=== PATIENT | female | born 1950 | race Caucasian/White ===

== ENCOUNTER 2016-04-27 14:40 | Inpatient (IN) | payer MEDICARE, OTHER ==
[2016-04-27] MEDS ORDERED: IOPAMIDOL 300 (61%) 150 ML VIAL IV ONE (14:41)
[2016-04-27 16:09] LABS: ABSOLUTE NEUTROPHIL COUNT 6.8 K/mm3 (1.8-7.7); BASO % 0.1 % (0.2-1.0); EOS # 0.1 (0.0-0.5); EOS % 0.9 % (0.9-2.9); HEMATOCRIT 28.2 % (37.0-47.0); HEMOGLOBIN 8.7 gm/l (12.0-16.0); IMM NEUT # 0.1 K/mm3 (0-0.2); IMM NEUT% 0.7 % (0-1); LYMPH # 1.3 (1.0-4.8); LYMPH % 14.1 % (15-45); MEAN CORPUSCULAR HEMOGLOBIN 25.3 pg (27.0-31.0); MEAN CORPUSCULAR HGB CONC 30.9 g/dl (33.0-37.0); MONO # 0.8 (0.0-0.8); MONO % 8.3 % (4-12); NEUT % 75.9 % (43-75); PLATELET COUNT 31 K/mm3 (130-400); RED CELL DISTRIBUTION WIDTH 24.1 % (11.5-14.5)
--- NOTE | 2016-04-27 16:13 | CT ---
HEAD W/O CON COMPARISON: None HISTORY: Elevated INR. Thrombocytopenia. On Coumadin. TECHNIQUE: Using a [employer] [address] scanner, images were obtained through the head. An automated dose reduction technique was used to minimize patient radiation dose. DOSE INFORMATION: CTDIvol (mGy): 51.70 DLP(mGycm): 887.30 FINDINGS: Mass: None Intracranial Hemorrhage: None Acute Infarction: None Cerebral hemispheres: Moderate volume loss. Low attenuation in the white matter. Basal ganglia: Normal Thalami: Normal Brainstem: Normal Cerebellum: Normal Ventricles: Normal Basilar cisterns: Normal Corpus callosum: Normal Pituitary fossa: Normal Middle ears and mastoid air cells: Normal Orbits and sinuses: Normal Skull and scalp: Normal Dural sinuses and vessels: Atherosclerosis of the internal carotid arteries. IMPRESSION: 1. No acute finding. 2. Moderate cerebral atrophy and chronic small vessel schema change of the white matter. Report was sent to the emergency department electronic medical record system 04/27/2016 at 16:14
[2016-04-27 16:36] LABS: PROTHROMBIN TIME 70.9 SECONDS (9.3-11.4)
[2016-04-27 16:41] LABS: INR 6.14
--- NOTE | 2016-04-27 16:46 | RAD ---
CHEST - 2 VIEWS COMPARISON: Chest 2 views, 04/23/2010 HISTORY: Shortness of breath, low oxygen saturation, and chills. FINDINGS: Views: Frontal and lateral chest Lungs: Normal Heart and vessels: Normal Trachea and bronchi: Normal Mediastinum and antwan: Normal Costophrenic sulci: Normal Chest wall and bones: No acute finding. Port-A-Cath on the right. Upper abdomen: Normal. IMPRESSION: Satisfactory position of right-sided Port-A-Cath. No acute finding.
[2016-04-27 16:59] LABS: ALB/GLOB RATIO 0.8 (>1.0); ALBUMIN 2.5 gm/dL (3.5-5.7); CALCIUM 8.5 mg/dL (8.6-10.3); MAGNESIUM 1.5 mg/dL (1.9-2.7)
[2016-04-27] MEDS ORDERED: BISACODYL 5 MG TABLET.EC PO PRN ×2 (17:06→19:51)
[2016-04-27] MEDS ORDERED: ACETAMINOPHEN 325 MG TABLET PO PRN ×2 (17:06→19:51)
[2016-04-27] MEDS ORDERED: BISACODYL 10 MG SUP PR PRN ×2 (17:06→19:51)
[2016-04-27] MEDS ORDERED: SODIUM CHLORIDE 0.9% 100 ML IV PRN ×2 (17:06→19:51)
[2016-04-27] MEDS ORDERED: BLISTEX LIPSTICK 1 EACH TP PRN ×2 (17:06→19:51)
[2016-04-27] MEDS ORDERED: MENTHOL/CETYLPYRD 1 EACH LOZENGE PO PRN ×2 (17:06→19:51)
[2016-04-27] MEDS ORDERED: MAGNESIUM HYDROXIDE 30 ML UDCUP PO PRN ×2 (17:06→19:51)
[2016-04-27 17:18] LABS: PH,URINE 6.5 (5.0-8.0); URINE BILIRUBIN NEGATIVE (NEGATIVE); URINE BLOOD 4+ (NEGATIVE); URINE GLUCOSE (UA) NEGATIVE (NEGATIVE); URINE LEUKOCYTE ESTERASE 2+ (NEGATIVE); URINE NITRITE NEGATIVE (NEGATIVE); URINE PROTEIN TRACE (NEGATIVE); URINE UROBILINOGEN NORMAL (0-1 mg/dl)
[2016-04-27 17:21] LABS: URINE APPEARANCE HAZY; URINE COLOR YELLOW
[2016-04-27 17:23] LABS: URINE EPITHELIAL CELLS FEW /hpf; URINE WBC 30-40 /hpf
[2016-04-27 17:24] LABS: URINE BACTERIA 1+
[2016-04-27] MEDS ORDERED: CHERRY SYRUP PO ONE ×2 (17:30)
[2016-04-27] MEDS ORDERED: PHYTONADIONE 5 MG PO ONE ×2 (17:30)
[2016-04-27] MEDS ORDERED: CEFTRIAXONE 1 GRAM DUPLEX 50 ML IV ONE (17:36)
[2016-04-27 17:42] LABS: BAND 1 % (0-10); BASOPHIL 0 % (0-1); EOSINOPHIL 0 % (1-3); LYMPHOCYTE 8 % (15-45); MONOCYTE 2 % (4-12); NEUTROPHILS 89 % (43-75); PLATELET ESTIMATE DECREASED (NORMAL); TOTAL CELLS COUNTED 100
--- NOTE | 2016-04-27 18:53 | CT ---
Exam: CT abdomen and pelvis with contrast COMPARISON: 02/21/2016 and 11/22/2015 INDICATION: Bilateral leg swelling, query venous congestion. History of uterine/endometrial cancer. TECHNIQUE: CT examination of the abdomen and pelvis was obtained following the administration 125 mL Isovue-300 intravenous contrast. FINDINGS: There are metastatic lymph nodes along the common and external iliac chains as well as at the confluence of the IVC which do produce minor mass effect on the right common iliac vein and confluence of the IVC. These veins remain patent. The IVC is also relatively narrowed at the level of the left renal vein compared to the prior exam but this appears to be in part related to difference in patient positioning. The IVC does remain patent. Unfortunately, there is evidence of progression endometrial cancer over the short interim. The peritoneal carcinomatosis has increased, particularly along the liver surface, and there are new intrahepatic liver lesions which measure up to 9 and 15 mm. Pelvic, retroperitoneal and mesenteric lymphadenopathy has increased as well, and there is increase in the metastatic disease at the level of the scar in the anterior abdominal wall and subcutaneous tissues. There has also been interval development of mild left-sided hydronephrosis and hydroureter, with the level of obstruction the pelvic mass in the hysterectomy bed. There are 2 small splenic lesions which have developed. There is a moderate amount of stool throughout the colon. There is no bowel obstruction, free air or free intraperitoneal fluid. The dominant mass within the hysterectomy bed is again noted to extend to the urinary bladder where there is focal urinary bladder wall thickening. Urinary bladder is otherwise unremarkable. Cholelithiasis. Gallbladder is otherwise unremarkable. Pancreas is within normal limits and stable. There is no adrenal mass. Atheromatous but nonaneurysmal abdominal aorta and iliac arteries. There are least 2 nodules within the right lung base along the hemidiaphragm which are not seen previously which raise concern for metastatic disease. Lung bases otherwise clear. No worrisome lytic or blastic osseous lesion is identified. IMPRESSION: 1. Progression of metastatic endometrial cancer since 02/21/2016. The dominant mass within the hysterectomy bed has increased and is now producing mild left-sided hydronephrosis and hydroureter. There is also an increase in peritoneal carcinomatosis, and there are new intrahepatic and intrasplenic lesions. In addition there are at least 2 nodules within the right lung base which are concerning for new metastatic disease. 2. The metastatic lymph nodes within the pelvis demonstrate minor mass effect on the right common iliac vein and SVC confluence, potentially producing some venous stasis within the legs. No DVT is identified in the veins remain patent. Report was uploaded to the EMR at 1849 hours 04/27/2016.
[2016-04-27 20:54] VITALS: BMI 62.8
[2016-04-27] MEDS ORDERED: DOCUSATE SODIUM 100 MG CAPSULE PO SCH (21:00)
[2016-04-27] MEDS ORDERED: FUROSEMIDE 20 MG TABLET PO PRN (22:30)
[2016-04-27] MEDS ORDERED: ALPRAZOLAM 1 MG TABLET PO PRN (22:30)
[2016-04-27] MEDS ORDERED: GABAPENTIN 300 MG CAPSULE PO SCH (22:30)
[2016-04-27] MEDS: TRAMADOL HCL 50 MG TABLET PO SCH (23:19)
[2016-04-27] MEDS: DIGOXIN 0.25 MG/ML AMP IV SCH (23:19)
[2016-04-27] MEDS: DOCUSATE SODIUM 100 MG CAPSULE PO SCH (23:35)
[2016-04-28] MEDS: DIGOXIN 0.25 MG/ML AMP IV SCH ×3 (04:30→17:23)
[2016-04-28] MEDS: TRAMADOL HCL 50 MG TABLET PO SCH ×4 (04:30→22:02)
[2016-04-28 07:51] LABS: ABSOLUTE NEUTROPHIL COUNT 6.3 K/mm3 (1.8-7.7); BASO % 0.1 % (0.2-1.0); EOS % 0.4 % (0.9-2.9); HEMATOCRIT 24.6 % (37.0-47.0); HEMOGLOBIN 7.7 gm/l (12.0-16.0); IMM NEUT # 0.1 K/mm3 (0-0.2); IMM NEUT% 0.6 % (0-1); LYMPH # 1.1 (1.0-4.8); LYMPH % 13.3 % (15-45); MEAN CORPUSCULAR HEMOGLOBIN 25.7 pg (27.0-31.0); MEAN CORPUSCULAR HGB CONC 31.3 g/dl (33.0-37.0); MONO # 0.8 (0.0-0.8); MONO % 9.6 % (4-12); PLATELET COUNT 28 K/mm3 (130-400); RED CELL DISTRIBUTION WIDTH 24.1 % (11.5-14.5)
[2016-04-28 07:54] LABS: ALB/GLOB RATIO 0.8 (>1.0); ALBUMIN 2.2 gm/dL (3.5-5.7); CALCIUM 7.9 mg/dL (8.6-10.3)
[2016-04-28 08:28] LABS: PLATELET ESTIMATE PLTS DECREASED (NORMAL)
[2016-04-28 08:29] LABS: ANISOCYTOSIS 2+; HYPOCHROMIA 1+
[2016-04-28] MEDS: ASCORBIC ACID 500 MG TABLET PO SCH (09:06)
[2016-04-28] MEDS: DOCUSATE SODIUM 100 MG CAPSULE PO SCH ×2 (09:06→20:00)
[2016-04-28] MEDS: FERROUS GLUCONATE (38 Fe) 324 MG TABLET PO SCH (09:06)
[2016-04-28] MEDS: ATORVASTATIN CALCIUM 40 MG TABLET PO SCH (09:06)
[2016-04-28] MEDS: GABAPENTIN 300 MG CAPSULE PO SCH ×4 (09:07→19:50)
[2016-04-28] MEDS ORDERED: Heparin Sodium Flush 500 unit/5 ml syringe ONE (09:12)
[2016-04-28] MEDS: Heparin Sodium Flush 500 unit/5 ml syringe IV PRN ×3 (09:40→18:53)
[2016-04-28 10:10] LABS: INR 2.18; PROTHROMBIN TIME 23.8 SECONDS (9.3-11.4)
--- NOTE | 2016-04-28 11:11 | HP ---
Breanna Gordon [id number] DATE OF ADMISSION: 04/27/2016 CHIEF COMPLAINT: Elevated INR. HISTORY OF PRESENT ILLNESS: The patient is a 66-year-old female with metastatic endometrial cancer who presented to the [facility] Emergency Department due to concerns about excessive anticoagulation. She had her chemotherapy cancelled today due to low platelets. She went to her anticoagulation clinic and found out her INR was still higher than expected despite being off of her Coumadin for the last month. It is unclear for what reasons, but the nurse at the Coumadin Clinic suggested she go to the emergency department. While in the emergency department, the focus seemed to be on her labs, however, she has had increased swelling in her lower extremities with increased redness as well as some progressive redness of the medial aspect of both lower legs and she noted the progressive redness up into the thighs today, but this was not addressed. While in the emergency department she did receive a dose of Rocephin, it is not clear what the rational for the Rocephin was at that time. She was told she was being treated for urinary tract infection. She has been undergoing treatment for her endometrial cancer and in the past week they have noticed an elevated protime and her Coumadin has been held, but despite holding the Coumadin she has had continued issues with protime elevation. She has had progressive swelling in her legs as well. REVIEW OF SYSTEMS: Negative for any fevers or chills. She has had no recent upper respiratory symptoms. She denies cough, dyspnea, wheezing, chest pain, or shortness of breath. She has had no orthopnea. She has had chronic lower extremity edema that has been a little worse than usual. She has had no nausea or vomiting. She has had some discomfort in her lower abdomen, which has been off and on for weeks. She has had no diarrhea or constipation. She denies any arthralgias. No headaches, fainting, blackouts, or seizures. She does complain of persistent urinary urgency and hesitancy despite treatment for a urinary tract infection on April 13. PAST MEDICAL HISTORY: Significant for endometrial cancer originally diagnosed in December 2014. She has had treatment through [facility] and then moved to [place] briefly to be with her son and then recently returned to [facility] for continuation of her treatment. She has been through multiple rounds of various chemotherapy agents. She is currently receiving gemcitabine once weekly for three weeks a month. Her chemotherapy was cancelled today due to low platelet levels. She had a follow up CT scan scheduled for April 29, but that was performed in the emergency department and shows evidence of poor response to the chemotherapy, progressive metastatic endometrial cancer seen compared to prior studies in February with new peritoneal carcinomatosis and intrahepatic and intrasplenic lesions, also two nodules within the right lung base are present concerning for metastatic disease and lymph nodes within the pelvis showing minor mass effect on the right common iliac vein and SVC confluence contributing to the venous stasis in her legs. No deep venous thrombosis was identified on the CT scan. Her chemotherapy currently is being managed by Cayla Salcedo. She has a history of chronic atrial fibrillation and chronic diastolic heart failure followed by Dr. Tejeda at [facility]. Last echocardiogram done in March 2014 showed a normal ejection fraction. She had adult onset diabetes complicated by diabetic neuropathy. She has had a history of hypertension in the past, but her blood pressure has been running low in the last year. She has a history of melanoma removed in 2001, history of hyperlipidemia and chronic venous insufficiency with venous stasis edema causing chronic lower extremity edema. PAST SURGICAL HISTORY: Significant for endometrial biopsy in December 2014. She had an exploratory laparotomy with omentectomy, appendectomy, left ureterolysis. bilateral salpingo-oophorectomy, and hysterectomy in February [address] Page. She had a tonsillectomy as a child. She had a left breast biopsy in 1998 which was benign, a right breast cystectomy at the age of 18 which was benign. She had a melanoma removed from the right upper back in 2001, the status of that is unknown. ALLERGIES: DOCUMENTED TO BUMEX WHICH CAUSED A RASH. CURRENT MEDICATIONS: 1. Vitamin C 500 mg daily. 2. Magnesium 250 mg daily. 3. Iron gluconate 324 mg daily. 4. Lipitor 40 mg daily. 5. Lasix 40 mg daily as needed for swelling. 6. Albuterol HFA inhaler 1 to 2 puffs every 4 hours as needed for wheezing. 7. Neurontin 600 mg at bedtime, 300 mg at 9:00 a.m. , noon, 4:00 p.m., and 8:00 p.m. 8. Xanax 0.5 mg twice daily as needed for anxiety. 9. Tramadol 50 mg every 6 hours as needed for pain. 10. Metformin 1000 mg every morning. 11. Warfarin 1.5 mg daily as her usual dose, but she has been off of medication for the past week. FAMILY HISTORY: Significant for a mother who of a stroke. Her father of pneumonia. SOCIAL HISTORY: She is and lives in the [place] area. She has one adopted son who lives in [place], [place] I believe. She is retired. She has about a 20 pack year history of smoking, quit in 2005. Denies drug use. Drinks wine occasionally. Her primary care provider is Dr. Germain Sinha. PHYSICAL EXAMINATION: VITAL SIGNS: Show a temperature of 97.7, pulse 121, blood pressure 86/48, respirations 20, oxygen saturation 98% on room air, body mass index is 62.9, weight is 161kg. GENERAL: This is an elderly female in no acute distress. HEENT: Unremarkable. NECK: Supple without lymphadenopathy or jugular venous distention. LUNGS: Breath sounds are diminished in the bases with some crackles. CARDIOVASCULAR: Reveals and irregular tachycardia. ABDOMEN: Reveals some fullness in the lower abdominal area. No tenderness or guarding. Positive bowel sounds. PELVIC: Deferred. RECTAL: Deferred. EXTREMITIES: Show 3+ pitting edema in the lower leg extending up into the posterior thighs and into the buttock. She has diffuse erythema of her lower legs including the feet with some redness involving the medial aspect of both legs extending toward the groin region. There is ulcerated vesicle in the right lower leg measuring about 5 x 5 cm with serous drainage and there is scaling of the skin over the feet. No other open wounds are present. Pulses are 1+ at the dorsalis pedis arteries bilaterally. NEUROLOGIC: Patient alert and oriented x3. LABORATORY STUDIES: CBC shows a white count of 9, hemoglobin of 8.7, platelet count of 31,000. Differential shows 89% neutrophils, 1% bands, 8% lymphocytes. INR is elevated at 6.14. Chemistry profile shows a sodium of 133, potassium 3.7, carbon dioxide 29, creatinine 0.6, glucose 125, magnesium 1.5. Total bilirubin 0.8, AST 43, ALT 35. Troponin I is 0.02. B-type natiuretic peptide is 340. Albumin is 2.5, lipase is 5. Urine shows 4+ blood, 2+ leukocyte esterase, 6-10 red cells, 30-40 white cells, 1+ bacteria. DIAGNOSTICS: CT of the abdomen and pelvis shows evidence of metastatic disease as mentioned above. Chest x-ray shows normal heart, lungs, and vessels. She has a port-a-cath in place. CT of the brain without contrast shows no acute findings with moderate cerebral atrophy and chronic small vessel ischemic change. ASSESSMENT AND PLAN: The patient's venous stasis edema with secondary to cellulitis involving both lower extremities. She has metastatic endometrial cancer. She is immunocompromised due to her chemotherapy. She has thrombocytopenia due to gemcitabine. She has an elevated INR associated with her Coumadin and her liver metastasis which has been refractory to vitamin K so far. She has chronic atrial fibrillation with tachycardia. She has chronic diastolic heart failure. She has hypotension. She has diabetes. She is admitted to the med/surg unit. She has no POLST form. Prognosis is poor. She will be treated with Rocephin. I cultured the drainage from the right lower leg wound. Will consult with oncology to determine if the patient would be a candidate for hospice or if further palliative treatment would be an option. Due to her hypotension, diuresis is contraindicated, but given her severe edema I am reluctant to give her fluids at this time. She is asymptomatic and has normal renal function. I am not going to treat her tachycardia or her hypotension, however, I would consider putting the patient on digitalis for rate control as this is blood pressure neutral. For her diabetes she is going to continue her usual medicines along with sliding scale NovoLog. She has chronic diastolic heart failure which appears to be stable. I am going to review the patient's advanced directive and create a POLST form hopefully before she discharges, but she is reluctant to discuss this at this time and would like to think about things. Venous thromboembolism is moderate and she is excessively anticoagulated at this point. She received a dose of vitamin K. We will get a daily INR. We will likely pursue some type of compressive dressing for her lower extremities. JOB: [id number] CC: Dr. Cayla Sinha
[2016-04-28 12:09] LABS: CALCIUM 7.8 mg/dL (8.6-10.3)
--- NOTE | 2016-04-28 12:12 | PDOC43 ---
- Subjective Chief Complaint: Leg swelling, elevated INR Patient reports feeling ok. Leg puffiness is a bit better. Breathing ok. No abdominal c/o. No c/o. Does have ongoing neuropathy involving feet since 1998. - Objective Vital Signs Temperature 98.0 F 04/28/16 07:00 Pulse Rate 110 04/28/16 07:00 Respiratory Rate 20 04/28/16 08:00 Blood Pressure 100/52 04/28/16 07:00 O2 Saturation by Pulse Oximetry 94 04/28/16 07:00 Oxygen Delivery Method Room Air Oxygen Flow Rate 0 Vital Signs Last 12 Hours Temp Pulse Resp BP Pulse Ox 04/28/16 08:00 20 04/28/16 07:00 98.0 F 110 18 100/52 94 04/28/16 01:06 20 Intake and Output 04/26/16 04/27/16 04/28/16 23:59 23:59 23:59 Intake Total 360 Output Total 250 Balance 110 General: Alert, Cooperative, Other (wearing hat to cover head), No Acute Distress Lungs: Clear to Auscultation Bilaterally (posterior with good air movement, anteriorly is difficult to hear.) Cardiovascular: Other (mostly regular, rate controlled.) Abdomen: Soft, Normal Bowel Sounds, No Tenderness Extremities: Edema (of feet noted, including soles of feet, but appearing improved with wrinkling noted on sides of fet.) Skin: Normal Color, Other (legs/feet with dusky erythema, not appearing cellulitic.) Neurological: Normal Speech Psych/Mental Status: Normal Affect (very sweet.) Laboratory 04/28/16 05:10 04/28/16 05:10 04/28/16 04/28/16 09:40 05:10 RBC 3.00 L MCH 25.7 L MCHC 31.3 L RDW 24.1 H PT 23.8 H Estimated GFR 99 H Calcium 7.9 L AST 53 H Alkaline Phosphatase 136 H Total Protein 4.9 L Albumin 2.2 L Albumin/Globulin Ratio 0.8 L Laboratory Tests 04/27/16 04/28/16 15:46 09:40 INR 6.14 H* 2.18 Current Medications: Current meds reviewed in EMR. Active Medications Acetaminophen (Tylenol) 650 mg PO Q6H PRN PRN Reason: Pain or Temperature > 100.5 F Alprazolam (Xanax) 0.5 mg PO BID PRN PRN Reason: Anxiety Ascorbic Acid (Vitamin C) 500 mg PO DAILY [facility] Last Admin: 04/28/16 09:06 Dose: 500 mg Atorvastatin Calcium (Lipitor) 40 mg PO DAILY [facility] Last Admin: 04/28/16 09:06 Dose: 40 mg Benzocaine/Menthol (Cepacol) 1 each PO PRN PRN PRN Reason: Sore Throat Bisacodyl (Dulcolax) 10 mg MO DAILY PRN PRN Reason: Constipation Bisacodyl (Dulcolax) 5 mg PO DAILY PRN PRN Reason: Constipation Digoxin (Lanoxin) 0.25 mg IV Q6H [facility] Stop: 04/28/16 16:31 Last Admin: 04/28/16 09:41 Dose: 0.25 mg Digoxin (Lanoxin) 0.25 mg PO DAILY@1700 [facility] Docusate Sodium (Colace) 100 mg PO BID [facility] Last Admin: 04/28/16 09:06 Dose: 100 mg Ferrous Gluconate (Fergon) 324 mg PO DAILY [facility] Last Admin: 04/28/16 09:06 Dose: 324 mg Furosemide (Lasix) 40 mg PO QAM [facility] Gabapentin (Neurontin) 300 mg PO 0900,1200,1600,2000 [facility] Last Admin: 04/28/16 09:07 Dose: 300 mg Gabapentin (Neurontin) 600 mg PO Q24H [facility] Heparin Sodium (Beef Lung) (Heparin Sodium 500 Unit/5 Ml) 500 units IV PRN PRN PRN Reason: per [facility] protocol Last Admin: 04/28/16 11:34 Dose: 500 units Sodium Chloride (Sodium Chloride 0.9%) 100 mls @ 25 mls/hr IV PRN PRN PRN Reason: Flush Ceftriaxone Sodium/Dextrose 1 (g/ Premix (D5W) 50 ml) 50 mls @ 100 mls/hr IV Q24H [facility] Magnesium Hydroxide (Milk Of Magnesia) 30 ml PO DAILY PRN PRN Reason: Constipation Petrolatum/Paraffin/Mineral Oil (Blistex) 1 each TP PRN PRN PRN Reason: Dry and/or chapped lips Sodium Chloride (Normal Saline 10ml Flush) 10 - 50 ml IV PRN PRN PRN Reason: IV Flush Last Admin: 04/28/16 11:30 Dose: 30 ml Sodium Chloride (Normal Saline 10ml Flush) 10 ml IV Q8HR [facility] Last Admin: 04/28/16 09:07 Dose: 10 ml Tramadol HCl (Ultram) 50 mg PO Q6H [facility] Last Admin: 04/28/16 09:41 Dose: 50 mg - Problems: Assessment/Plan (1) Edema Qualifiers: Edema type: unspecified Qualifier Code: (R60.9) Edema, unspecified Status: AcuteAssessment/Plan: several factors may be playing a role. Pt with metastatic endometrial cancer, low albumin, sl elevated BNP. Improved with diuresis, and plan supplementation of protein, elevation of legs, compression. (2) Endometrial cancer Status: AcuteAssessment/Plan: With progressing peritoneal carcinomatosis; seeing Dr Salcedo, recent chemotherapy (Apr 2016). CT also shows some mild degree hydronephrosis/hydroureter, and poss lung mets. , Will review with Dr Salcedo about further tx/concerns. (3) Anemia Status: AcuteAssessment/Plan: Suspect due to chemotherapy, but also consider chronic illness; Thrombocytopenia noted as well. Pt renal status ok, iron studies (last month) seem ok. (4) Thrombocytopenia Status: AcuteAssessment/Plan: Pt's platelets had been normal or even high until earlier this month. Did have chemo this month, about 2-3 weeks ago (5) Atrial fibrillation Qualifiers: Atrial fibrillation type: chronic Qualifier Code: (I48.2) Chronic atrial fibrillation Status: ChronicAssessment/Plan: On coumadin. Had marked elevated INR; now to goal. Rate controlled, on digoxin. Will wish to discuss with Dr Salcedo about whether to continue with anticoagulation, kizzy in setting of thrombocytopenia. (6) Peripheral neuropathy Qualifiers: Peripheral neuropathy type: polyneuropathy, unspecified Qualifier Code : (G62.9) Polyneuropathy, unspecified Status: ChronicAssessment/Plan: Chronic, continue meds. VTE Prophylaxis: Mechanical only, but INR is still in goal range (2s) today.
[2016-04-28] MEDS ORDERED: CEFTRIAXONE 1 GRAM DUPLEX 1 G in Premix (D5W) 50 ml 1 EACH IV SCH (17:00)
[2016-04-28] MEDS ORDERED: PUMP TUBING ONE (17:11)
[2016-04-28] MEDS ORDERED: GABAPENTIN 600 MG TABLET PO SCH (22:30)
[2016-04-29] MEDS: TRAMADOL HCL 50 MG TABLET PO SCH ×3 (04:06→16:14)
[2016-04-29] MEDS: Heparin Sodium Flush 500 unit/5 ml syringe IV PRN ×2 (04:45→16:33)
[2016-04-29 05:32] LABS: INR 1.34; PROTHROMBIN TIME 14.3 SECONDS (9.3-11.4)
[2016-04-29 05:33] LABS: ALB/GLOB RATIO 0.8 (>1.0); ALBUMIN 2.2 gm/dL (3.5-5.7); CALCIUM 7.9 mg/dL (8.6-10.3)
[2016-04-29 06:11] LABS: ABSOLUTE NEUTROPHIL COUNT 6.2 K/mm3 (1.8-7.7); BASO % 0.1 % (0.2-1.0); EOS # 0.1 (0.0-0.5); EOS % 0.7 % (0.9-2.9); HEMOGLOBIN 7.9 gm/l (12.0-16.0); IMM NEUT # 0.1 K/mm3 (0-0.2); IMM NEUT% 0.7 % (0-1); LYMPH # 1.3 (1.0-4.8); LYMPH % 15.5 % (15-45); MEAN CELL VOLUME 83.9 fl (81.0-99.0); MEAN CORPUSCULAR HEMOGLOBIN 25.5 pg (27.0-31.0); MEAN CORPUSCULAR HGB CONC 30.4 g/dl (33.0-37.0); MONO # 0.9 (0.0-0.8); PLATELET COUNT 34 K/mm3 (130-400); RED CELL DISTRIBUTION WIDTH 24.4 % (11.5-14.5)
[2016-04-29 07:11] LABS: PLATELET ESTIMATE DECREASED (NORMAL)
[2016-04-29 07:12] LABS: ANISOCYTOSIS 2+
[2016-04-29] MEDS ORDERED: FUROSEMIDE 40 MG TABLET PO SCH (09:00)
[2016-04-29] MEDS: DOCUSATE SODIUM 100 MG CAPSULE PO SCH (09:30)
[2016-04-29] MEDS: FERROUS GLUCONATE (38 Fe) 324 MG TABLET PO SCH (09:30)
[2016-04-29] MEDS: ASCORBIC ACID 500 MG TABLET PO SCH (09:31)
[2016-04-29] MEDS: ATORVASTATIN CALCIUM 40 MG TABLET PO SCH (09:31)
[2016-04-29] MEDS: GABAPENTIN 300 MG CAPSULE PO SCH ×3 (09:31→16:14)
--- NOTE | 2016-04-29 10:38 | PDOC43 ---
- Subjective Chief Complaint: Leg swelling, elevated INR Patient reports feeling ok, eager to go home. Got legs wrapped up, doing ok. Doesn't wish to start hospice at this time. Reports good help at home. No new c/ o. - Objective Vital Signs Temperature 98.3 F 04/29/16 07:37 Pulse Rate 90 04/29/16 07:37 Respiratory Rate 16 04/29/16 07:37 Blood Pressure 94/41 04/29/16 07:37 O2 Saturation by Pulse Oximetry 92 04/29/16 07:37 Oxygen Delivery Method Room Air Oxygen Flow Rate 0 Vital Signs Last 12 Hours Temp Pulse Resp BP Pulse Ox 04/29/16 07:37 98.3 F 90 16 94/41 92 04/29/16 03:05 97.7 F 85 20 103/51 93 04/29/16 01:58 20 04/28/16 23:35 98.0 F 83 22 119/66 95 Intake and Output 04/27/16 04/28/16 04/29/16 23:59 23:59 23:59 Intake Total 1214 750 Output Total 1150 500 Balance 64 250 General: Alert, Cooperative, No Acute Distress Lungs: Clear to Auscultation Bilaterally, Normal Air Movement Cardiovascular: Regular Rate and Rhythm Abdomen: Soft, Normal Bowel Sounds, Other (sl full abdomen) Extremities: Edema (with venous stasis changes, discoloration.) Neurological: Normal Speech Psych/Mental Status: Normal Affect, Normal Mood, Other (very pleasant) Laboratory 04/29/16 04:35 04/29/16 04:35 04/29/16 04/28/16 04/28/16 04:35 11:00 09:40 RBC 3.10 L MCH 25.5 L MCHC 30.4 L RDW 24.4 H PT 14.3 H 23.8 H Calcium 7.9 L 7.8 L Alkaline Phosphatase 124 H Total Protein 5.0 L Albumin 2.2 L Albumin/Globulin Ratio 0.8 L Current Medications: Current meds reviewed in EMR. Active Medications Acetaminophen (Tylenol) 650 mg PO Q6H PRN PRN Reason: Pain or Temperature > 100.5 F Alprazolam (Xanax) 0.5 mg PO BID PRN PRN Reason: Anxiety Ascorbic Acid (Vitamin C) 500 mg PO DAILY [facility] Last Admin: 04/29/16 09:31 Dose: 500 mg Atorvastatin Calcium (Lipitor) 40 mg PO DAILY [facility] Last Admin: 04/29/16 09:31 Dose: 40 mg Benzocaine/Menthol (Cepacol) 1 each PO PRN PRN PRN Reason: Sore Throat Bisacodyl (Dulcolax) 10 mg [place] DAILY PRN PRN Reason: Constipation Bisacodyl (Dulcolax) 5 mg PO DAILY PRN PRN Reason: Constipation Digoxin (Lanoxin) 0.25 mg PO DAILY@1700 [facility] Docusate Sodium (Colace) 100 mg PO BID [facility] Last Admin: 04/29/16 09:30 Dose: 100 mg Ferrous Gluconate (Fergon) 324 mg PO DAILY [facility] Last Admin: 04/29/16 09:30 Dose: 324 mg Furosemide (Lasix) 40 mg PO QAM [facility] Last Admin: 04/29/16 09:30 Dose: 40 mg Gabapentin (Neurontin) 300 mg PO 0900,1200,1600,2000 [facility] Last Admin: 04/29/16 09:31 Dose: 300 mg Gabapentin (Neurontin) 600 mg PO Q24H [facility] Last Admin: 04/28/16 22:02 Dose: 600 mg Heparin Sodium (Beef Lung) (Heparin Sodium 500 Unit/5 Ml) 500 units IV PRN PRN PRN Reason: per [facility] protocol Last Admin: 04/29/16 04:45 Dose: 500 units Sodium Chloride (Sodium Chloride 0.9%) 100 mls @ 25 mls/hr IV PRN PRN PRN Reason: Flush Ceftriaxone Sodium/Dextrose 1 (g/ Premix (D5W) 50 ml) 50 mls @ 100 mls/hr IV Q24H [facility] Last Admin: 04/28/16 18:06 Dose: 100 mls/hr Magnesium Hydroxide (Milk Of Magnesia) 30 ml PO DAILY PRN PRN Reason: Constipation Petrolatum/Paraffin/Mineral Oil (Blistex) 1 each TP PRN PRN PRN Reason: Dry and/or chapped lips Sodium Chloride (Normal Saline 10ml Flush) 10 - 50 ml IV PRN PRN PRN Reason: IV Flush Last Admin: 04/28/16 18:53 Dose: 10 ml Sodium Chloride (Normal Saline 10ml Flush) 10 ml IV Q8HR [facility] Last Admin: 04/29/16 09:31 Dose: Not Given Tramadol HCl (Ultram) 50 mg PO Q6H [facility] Last Admin: 04/29/16 09:31 Dose: 50 mg - Problems: Assessment/Plan (1) Edema Qualifiers: Edema type: unspecified Qualifier Code: (R60.9) Edema, unspecified Status: AcuteAssessment/Plan: several factors may be playing a role. Pt with metastatic endometrial cancer, low albumin, sl elevated BNP; Dr Salcedo reports chemo (gemcitabine) can cause edema as well. Improved with diuresis, and plan supplementation of protein, elevation of legs, compression. (2) Endometrial cancer Status: AcuteAssessment/Plan: With progressing peritoneal carcinomatosis; seeing Dr Salcedo, recent chemotherapy (Apr 2016). CT also shows some mild degree hydronephrosis/hydroureter, and poss lung mets. Reviewed with Dr Salcedo about further tx/concerns, she would consider for hospice Reviewed with patient, she would like to wait to speak with Dr Salcedo rather than start hospice now. (3) Anemia Status: AcuteAssessment/Plan: Suspect due to chemotherapy, but also consider chronic illness; Thrombocytopenia noted as well. Pt renal status ok, iron studies (last month) seem ok. Plan recheck CBC via home health (4) Thrombocytopenia Status: AcuteAssessment/Plan: Pt's platelets had been normal or even high until earlier this month. Did have chemo this month, about 2-3 weeks ago (5) Atrial fibrillation Qualifiers: Atrial fibrillation type: chronic Qualifier Code: (I48.2) Chronic atrial fibrillation Status: ChronicAssessment/Plan: On coumadin. Had marked elevated INR; now to goal. Rate controlled, on digoxin. Spoke with Dr Salcedo about whether to continue with anticoagulation, kizzy in setting of thrombocytopenia; she reports wait until plt > 50K. (6) Peripheral neuropathy Qualifiers: Peripheral neuropathy type: polyneuropathy, unspecified Qualifier Code : (G62.9) Polyneuropathy, unspecified Status: ChronicAssessment/Plan: Chronic, continue meds. VTE Prophylaxis: Mechanical only, but INR now below 2 today. Disposition: anticipate DC to home with HH to check on PT/OT needs. Follow up with Dr Salcedo; discussed consideration of hospice, pt declines at this time.
[2016-04-29 11:46] VITALS: BP 104/49
[2016-04-29] MEDS ORDERED: DIGOXIN 0.25 MG TABLET PO SCH (17:00)
--- NOTE | 2016-04-29 17:12 | DS ---
LES MOSHER [id number] DATE OF ADMISSION: 04/27/2016 DISCHARGE DIAGNOSES: 1. Known metastatic endometrial carcinoma. 2. Venous stasis edema bilaterally, with associated cellulitis. 3. Potential immunocompromise due to chemotherapy. 4. Thrombocytopenia and anemia due to gemcitabine. 5. Elevated INR associated with Coumadin taken for atrial fibrillation, now off Coumadin. 6. Chronic diastolic heart failure. 7. Diabetes. 8. History of atrial fibrillation, with rate control. 9. Peripheral neuropathy. 10. Remote history of melanoma. REASON FOR ADMISSION: The patient is a 66-year-old female with known metastatic endometrial cancer who presented to [facility] regarding excessive anticoagulation and edema. She had been scheduled for chemotherapy, but this was cancelled due to low platelets, and after anticoagulants in clinic her INR was higher than expected despite being off the Coumadin. She was referred to the emergency department. In the emergency department she had complained of increased swelling to the lower extremities with some redness and was given Rocephin and referred to the Hospitalist Service. HOSPITAL COURSE: The patient's admission labs showed a white count of 9.0, hemoglobin 8.7, MCV of 82.0 and platelets 31,000. INR is 6.14. Chemistry profile showed a sodium of 133, potassium 3.7, BUN of 13, creatinine 0.6, glucose 125, calcium 8.5, magnesium 1.5, AST of 43, ALT of 35 and alkaline phosphatase 132. CK of 22. Troponin 0.02. BNP of 340. Lipase 5 and albumin 2.5. Urinalysis showed 2+ leukocyte esterase, 6-10 red cells and 30-40 white cells. Her urine culture showed no growth however. She had some weeping from the right leg, which was cultured and showed light growth and normal skin cesar. The patient received continued ceftriaxone and Lasix. Her Coumadin was held and she received a dose of vitamin K. Her INR went from 6.14 to 2.18 to 1.34 by 04/29/2016. Her white count remained stable at 8.5 by 04/29/2016 and her hemoglobin drifted slightly to 7.9 by 04/29/2016. Platelet count remained low at 34,000. Chemistry profile showed modest improvement in sodium to 137. Renal function remained stable. Glucose 105. Mild elevation of alkaline phosphatase. Albumin remained low at 2.2. The patient underwent an abdomen and pelvis CT, which showed progression of metastatic endometrial cancer since 02/21/2016, dominant mass within the hysterectomy bed has increased and now producing mild left-sided hydronephrosis and hydroureter. There is also an increase in peritoneal carcinomatosis and new intrahepatic and new intrahepatic and intrasplenic lesions. In addition, there are at least two nodules within the right lung base that are concerning for new metastatic disease. The metastatic lymph nodes within the pelvis demonstrate minor mass effect on the right common iliac vein, potentially producing some venous stasis within the legs. No DVT is identified. A brain CT was done, showing moderate cerebral atrophy and chronic small vessel ischemic change of the white matter. A chest x-ray showed satisfactory position of right-sided Port-A-Cath. No acute findings. The patient's vital signs remained stable. She was afebrile the entire time and pressures remained slightly low. She was treated with Lasix and her legs were kept elevated, and she had good response with reduction in skin tension in legs and reduction in the erythema felt to be associated with cellulitis. On a phone call with Dr. Salcedo, her course was discussed. Dr. Salcedo felt that the gemcitabine was a likely candidate for the hematologic abnormalities and could be the cause of her edema as well. Dr. Salcedo recommended staying off of Coumadin while her platelet count was below 50,[address] Salcedo had also felt that the impression was that the endometrial carcinoma had not responded to gemcitabine and that there were no additional treatments that were felt to be effective. Dr. Salcedo indicated that she would likely suggest hospice for her. This was discussed with the patient, but she does not wish to start hospice at this time. The patient was feeling better and anticipated to be discharged to home on 04/29/2016. DISCHARGE MEDICATIONS: She is anticipated to be discharged on: 1. Albuterol one to two puffs inhaled every four hours as needed. 2. Xanax 0.5 mg by mouth twice a day as needed. 3. Vitamin C 500 mg by mouth daily. 4. Keflex 500 mg by mouth three times a day times one week. 5. Ferrous gluconate 325 mg by mouth daily. 6. Lasix 40 mg by mouth twice a day. 7. Gabapentin 600 mg at bedtime and 300 mg at 9:00, 12.00, 4:00 and 8:00 P.M. 8. Magnesium 250 mg by mouth daily. 9. Metformin 1,000 mg by mouth every A.M. 10. Potassium chloride 10 mEq by mouth twice a day. 11. Tramadol 50 mg by mouth every 6-8 hours. PLAN: She is scheduled to follow-up with Dr. Salcedo next week and is anticipated to get a lab draw later this week, and will want her to get a CBC and a comprehensive metabolic panel to follow-up on her anemia, thrombocytopenia and to review her renal function and sodium and potassium as well. She may also wish to get a magnesium level checked. Another discussion was carried-out regarding whether to pursue hospice. She does not wish to do this at this time. The patient also will be following-up with Dr. Sinha. A home health referral is anticipated to evaluate for physical therapy related needs at home. cc: Dr. Germain Salcedo
== END 2016-04-29 18:00 | disposition home health service (06) | DRG 918 ==
LOC: ED 14:40 → MS 18:47 → OBSVTOIN 21:20
PROVIDERS: ADMIT Family Medicine; ATTEND Family Medicine
DX: T45.1X5A Adverse effect of antineoplastic and immunosuppressive drugs, initial encounter (principal); I50.32 Chronic diastolic (congestive) heart failure; C54.1 Malignant neoplasm of endometrium; R79.1 Abnormal coagulation profile; G31.9 Degenerative disease of nervous system, unspecified; Z87.891 Personal history of nicotine dependence; I87.303 Chronic venous hypertension (idiopathic) without complications of bilateral lower extremity; D69.6 Thrombocytopenia, unspecified; Z79.899 Other long term (current) drug therapy; I48.2 Chronic atrial fibrillation; E11.9 Type 2 diabetes mellitus without complications; Z79.01 Long term (current) use of anticoagulants; Y92.9 Unspecified place or not applicable